=== PATIENT | male | born 1980 | race Hispanic/Latino ===

== ENCOUNTER 2023-06-04 20:33 | Emergency (ER) | payer OTHER ==
[2023-06-04 22:35] VITALS: BP 113/72
== END 2023-06-04 22:38 | disposition home or self-care (01) ==
LOC: ED 20:33
DX: S01.112A Laceration without foreign body of left eyelid and periocular area, initial encounter (principal); W50.0XXA Accidental hit or strike by another person, initial encounter; Y93.66 Activity, soccer
CPT/HCPCS: 12013; 99283-25